=== PATIENT | female | born 1985 | race Hispanic/Latino ===

== ENCOUNTER 2020-11-24 06:29 | Inpatient (IN) | payer OTHER, SELFPAY ==
--- OUTSIDE RECORDS SUMMARY | 2020-11-24 06:31 | XMS REPORT | Continuity of Care Document ---
:1985 Author Organization [facility] t Address [address] [place] [address] Dr. Pacheco. [address] [place] [address] Care Team Providers Name Role Phone Doctor Unassigned, Name Attending Clinician Unavailable Problems This patient has no known problems. Allergies, Adverse Reactions, Alerts This patient has no known allergies or adverse reactions. Medications This patient has no known medications. Procedures This patient has no known procedures. Encounters Start End Encounter Admission Attending Care Care Encounter Source Date/Time Date/Time Type Type Clinicians Facility Department ID 2020-09-24 2020-09-24 Orders Doctor CORRIE [id number] 00:00:00 00:00:00 Only Unassigned[place] [id number] [place] [facility] [id number] Results This patient has no known results.
[2020-11-24] MEDS ORDERED: Ringers Lactate 1,000 ML IV PRN ×2 (06:47→07:48)
[2020-11-24] MEDS ORDERED: METHYLERGONOVINE 0.2MG/ML AMP IM PRN ×2 (06:47→20:47)
[2020-11-24] MEDS ORDERED: CARBOPROST TROME 250 MCG/ML IM PRN ×2 (06:47→20:47)
[2020-11-24] MEDS ORDERED: BUTORPHANOL 1 MG/ML INJ IV PRN (06:47)
[2020-11-24] MEDS ORDERED: PROMETHAZINE INJ 25 MG/ML AMP IV PRN (06:47)
[2020-11-24] MEDS ORDERED: Ringers Lactate 1,000 ML IV SCH ×2 (07:00→08:00)
[2020-11-24] MEDS ORDERED: OXYTOCIN/LR 20 UNIT/1,000 ML BAG IV SCH ×2 (07:00→07:40)
[2020-11-24] MEDS ORDERED: OXYTOCIN/LR 20 UNIT/1,000 ML BAG IV ONE (07:44)
--- NOTE | 2020-11-24 07:46 | P.PN ---
Date of Service: 11/24/20 FSE applied, cx 2+-3cm, vtx, 0 station, 70% effaced, anterior position. Reactive fht's. Will begin pitocin induction of labor.
--- NOTE | 2020-11-24 07:58 | PREOPHP ---
Date of Admission: 11/24/2020 History Of Present Illness: Ms. Greenberg is a 28-year-old female, 4, para 2-0- 1-2, now at 39+ weeks gestation. She has been followed by me during this without complicat ions other than prior section, secondary macrosomia, and anemia. She has elected to a ttempt a after a prior section. Past Medical History: Please see record. Family History: Please see record. Review of Systems: She reports no recent cough, cold, fever, or chills. No recent nausea or vomiting. No breast knots or lumps. No bowel or bladder issues. Physical Examination: General: Pleasant female, in no apparent distress. Neck: Supple without adenopathy or thyromegaly. Lungs: Clear. Cardiac: Regular rate and rhythm without murmurs. Breasts: Not examined. Abdomen: Estimated weight of 8 pounds. Pelvic: Cervix noted to be 2+ cm, 70% effaced, vertex presentation between -1 and 0 station. Extremities: No cyanosis, clubbing, or edema. Impression: A 39+ week , prior section secondary to macrosomia and cephalope lvic disproportion. Plan: Patient will undergo attempted . I think this is significantly smaller than her pr ior and a trial of labor is appropriate. Risks and benefits are discussed. She has signed operative permit. LADARUIS/WILLI Voice ID: [id number]
[2020-11-24 08:16] LABS: Urine Appearance CLEAR; Urine Bilirubin NEGATIVE (NEG); Urine Blood NEGATIVE (NEG); Urine Color YELLOW; Urine Glucose NEGATIVE (NEG); Urine Protein NEGATIVE (NEG); Urine Specific Gravity <=1.005 (1.005-1.030); Urine Urobilinogen 0.2 mg/dL (0.2-1.0); Urine pH 6.5 (5.0-7.0)
[2020-11-24 08:19] LABS: Absolute Lymphocytes (CBC) 2.1 K/uL (0.7-4.9); Basophils % 0.4 % (0-1.3); Hematocrit 36.3 % (36.0-45.0); Lymphocytes % 21.1 % (15.3-44.8); MPV 10.2 fL (7.6-11.3); RBC Red Blood Cell Count 4.08 M/uL (3.86-4.86)
[2020-11-24 08:19] LABS: Urine Microscopic Reflex NO UMIC
[2020-11-24 08:20] VITALS: BMI 28.5
[2020-11-24] MEDS ORDERED: FENTANYL/BUPIVACAINE/NS/PF 200 MCG/100 ML BAG EP PRN (08:52)
[2020-11-24] MEDS ORDERED: FENTANYL CITR 100 MCG/2 ML IV ONE (08:52)
[2020-11-24] MEDS ORDERED: ROPIVACAINE HCL 0.2% 20ML AMP IV ONE (08:52)
[2020-11-24] MEDS ORDERED: BUPIVACAINE 0.25% PF 10 ML VIAL IJ PRN (08:52)
[2020-11-24] MEDS ORDERED: BUPIVACAINE 0.25% PF 30 ML VIAL ONE ×2 (13:28→17:02)
[2020-11-24] MEDS ORDERED: FENTANYL CITR 100 MCG/2 ML ONE ×2 (13:33→16:44)
--- NOTE | 2020-11-24 16:49 | P.PN ---
Date of Service: 11/24/20 Pt now dilated to 7+-8 cm, vtx at 0 to plus one station, reactive fht's, no periodic decellerations, cx with some edema.
[2020-11-24] MEDS ORDERED: CEFAZOLIN 2 GM in NA CHLORIDE 0.9% 100 ML IVPB ONE (19:05)
[2020-11-24] MEDS ORDERED: CEFAZOLIN/SWI 2gm 2 GM/20 ML SYR IV ONE (19:15)
[2020-11-24] MEDS ORDERED: CEFAZOLIN/SWI 2gm 2 GM/20 ML SYR ONE (19:18)
[2020-11-24] MEDS ORDERED: METOCLOPRAMIDE 10 MG/2mL INJ ONE (19:24)
[2020-11-24] MEDS ORDERED: NA CIT/CITRIC AC 30 ML ORAL UDC ONE (19:24)
[2020-11-24] MEDS ORDERED: METHYLERGONOVINE 0.2MG/ML AMP IM ONE (19:25)
[2020-11-24] MEDS ORDERED: FAMOTIDINE 20 MG/2 ML VIAL IV ONE (19:25)
[2020-11-24] MEDS ORDERED: MORPHINE SULFATE/PF 1 MG/ML (10 ML AMP) ONE (19:42)
[2020-11-24] MEDS ORDERED: LIDOCAINE 2% ONE (19:47)
[2020-11-24] MEDS ORDERED: OXYTOCIN 10 UNIT/ML ML IV ONE (20:08)
[2020-11-24] MEDS ORDERED: ONDANSETRON 4 MG/2 ML VIAL ONE (20:33)
[2020-11-24] MEDS ORDERED: KETOROLAC 30 MG/ML INJ IV PRN (20:47)
[2020-11-24] MEDS ORDERED: ONDANSETRON 4 MG (ODT) TAB PO PRN (20:47)
[2020-11-24] MEDS ORDERED: METHYLERGONOVINE 0.2 MG TAB PO PRN (20:47)
--- NOTE | 2020-11-24 20:50 | P.BOP ---
Preoperative diagnosis: 39+ wk , prior , ftp in labor Postoperative diagnosis: same, thinned lower uterine segment Primary procedure: , delivery viable male infant Secondary procedure: btl Ophthalmic Technologist: Flaco Davis Estimated blood loss: 800 Anesthesia: epidural Complications: None Drain(s): Urinary catheter Transferred to: Other (274) Condition: Good
[2020-11-24] MEDS ORDERED: OXYTOCIN/LR 20 UNITS/1,000 ML BAG IV SCH (21:00)
[2020-11-25 00:53] LABS: RPR (Rapid Plasma Reagin) NON-REACT (NON-REACT)
[2020-11-25 06:37] LABS: Basophils % 0.1 % (0-1.3); Hematocrit 31.2 % (36.0-45.0); Lymphocytes % 13.3 % (15.3-44.8); MPV 9.6 fL (7.6-11.3); RBC Red Blood Cell Count 3.48 M/uL (3.86-4.86)
[2020-11-25] MEDS ORDERED: Ringers Lactate 1,000 ML IV ONE (10:59)
[2020-11-25] MEDS: Oxycodone HCl/Acetaminophen 1 TAB TAB PO PRN ×3 (15:45→23:46)
[2020-11-26] MEDS: Oxycodone HCl/Acetaminophen 1 TAB TAB PO PRN (08:40)
[2020-11-26 12:15] VITALS: BP 121/73; TEMP 97
[2020-11-26 19:51] LABS: HBsAG Nonreactive (Nonreactive)
--- NOTE | 2020-11-27 09:46 | DS ---
Date of Discharge: 11/26/2020 Final Hospital Discharge Diagnoses: 39+ week , prior section, failure to progress with labor. Complications: None. Procedures: Artificial rupture of membranes, Pitocin augmentation of labor, induction of labor place ment of epidural catheter, repeat section, bilateral tubal ligation. Hospital Course: Patient is a 35-year-old , female, 4, para 2-0-1-2 at 39+ w eeks gestation followed by me during this with complications of prior section. Cristobal monte requested a trial of labor and attempted , but only reached 7+ cm cervical dilatation, then del ivered by repeat section an 8 pounds 4 ounce with epidural anesthesia. She underwent tubal ligation at the time of surgery because of thinned lower uterine segment. She was dismissed o n the second postoperative day, ambulatory, on a select diet with routine post activity res trictions to be seen back in my office in 1 week. She was dismissed to continue taking her iron and vitamins and with prescription for Tylenol No.3, #10 and usual post restrictions. LADARIUS/WILLI Voice ID: [id number] Report ID: [id number]
--- NOTE | 2021-01-14 10:46 | OP ---
Surgeon: Roni Schaeffer MD Remote Medical Coder: Marek Davis MD Preoperative Diagnoses: 1.39+ week , delivered. 2.Failure to progress in labor. 3.Failed attempt. Postoperative Diagnoses: 1.39+ week , delivered. 2.Failure to progress in labor. 3.Failed attempt. 4.Thinned lower uterine segment, requested sterilization. Procedure: Repeat section, bilateral tubal ligation. Description Of Procedure: After satisfactory level of epidural anesthesia was obtained and the patie nt had been given 2 g of Ancef for antibiotic prophylaxis, the patient was prepped and draped in the usual fashion. A low transverse Pfannenstiel skin incision was made, carried down to the fascia. Th e fascia was incised with a combination of sharp and blunt dissection. This was from the u nderlying rectus muscles. These were divided in the midline. The peritoneum identified and incised. Vesicouterine peritoneum incised. A bladder flap developed bluntly. A low transverse uterine inci landy was made. 8 pounds 4 ounces male was delivered. Vertex presentation. Cord was clamped, cut, and the infant placed in a warmer. Cord blood was obtained. The placenta was manually removed . The uterus was then exteriorized. The uterus was closed in 2 layers utilizing 0 Vicryl suture in a running non-interlocking fashion. Second layer used to imbricate the first. The vesicouterine per itoneum was reapproximated with running suture of 3-0 Vicryl. The right tube was grasped in the midp ortion, elevated. Mesosalpinx cauterized and an avascular window was created. Two sutures of 0 tank insulator rubber [place] were used proximally and distally to a 1 cm segment of tube, which was excised. Every tube was l ikewise ligated. The uterus was returned to peritoneal cavity. The rectus muscles were approximated in midline with simple sutures of 0 Vicryl. The fascia was closed with a running suture of #1 Vicry l from either margin to the middle. Skin closed with simple sutures of 3-0 Vicryl, subdermal suture of 3-0 Vicryl, and a running subcuticular suture of 4-0 Monocryl. Estimated total blood loss was les s than 800 cc. The patient was taken to recovery room in satisfactory condition with Melgar catheter in place. MPG/MODL Voice ID: [id number] Report ID: [id number]
== END 2020-11-26 15:45 | disposition home or self-care (01) | DRG 785 ==
LOC: 2ND-WC 06:29
PROVIDERS: ADMIT Specialist; ATTEND Specialist
PROC: 10907ZC Drainage of Amniotic Fluid, Therapeutic from Products of Conception, Via Natural or Artificial Opening (ICD-10-PCS; 2020-11-24)
PROC: 10D00Z1 Extraction of Products of Conception, Low, Open Approach (ICD-10-PCS; principal; 2020-11-24 19:50)
PROC: 0UB70ZZ Excision of Bilateral Fallopian Tubes, Open Approach (ICD-10-PCS; 2020-11-24 19:50)
DX: O34.211 Maternal care for low transverse scar from previous cesarean delivery (principal); Z3A.39 39 weeks gestation of pregnancy; Z37.0 Single live birth; Z20.822 Contact with and (suspected) exposure to COVID-19
CPT/HCPCS: 36415; 81003; 85025; 86592; 86901; 87340; 88302; 88307; J0690; J2210; J2405; J2550; J2590; J2765; J3010; J7120; U0003